=== PATIENT | male | born 1980 | race Caucasian/White ===

== ENCOUNTER → 2018-11-21 | Day surgery (SDC) | payer MEDICARE, OTHER ==
[~2018-11-21] VITALS: Ht 182.9 cm; Wt 189.4 kg
[2018-11-21] VITALS (8 sets, daily range): BP systolic 91–125; BP diastolic 50–69; PULSE 72–82; RESP 16–24
[~2018-11-21] MED LIST: ACETAMINOPHEN 325 MG TAB PO PRN; ALBUTEROL 0.083% (NEB) 2.5 MG/3 ML AMP HHN PRN; BUPIVACAINE 0.25% (MPF) 30 ML INJ ONE; BUPIVACAINE 0.5%/EPI (SDV) 30 ML INJ ONE; CARV25TA79 PO; CEFAZOLIN 1 GM INJ ONE; CEFAZOLIN 2 GM/50 ML (PMX) 50 ML IVPB ONE; CYCLOBENZAPRINE 10 MG TAB PO PRN; DIPHENHYDRAMINE 25 MG CAP PO PRN; DIPHENHYDRAMINE 50 MG INJ IV PRN; DULO60CA59 PO; EPHEDrine 25 MG/5 ML SYG ONE; EPINEPHrine 10 MCG/1ml (10 ML SYG) IV ONE; FENTAnyl 50 MCG/ML VIAL IV PRN; FENTAnyl 50 MCG/ML VIAL ONE; GABA-526 PO; GELATIN SIZE 100 SPONGE ONE; HYDROCODONE/APAP (5/325) TAB PO PRN; HYDROmorphONE 0.5 MG/0.5 ML SYG IV PRN; HYDROmorphONE 1 MG/5 ML IV SYRINGE IV PRN; IPRATROPIUM (NEB) 0.5 MG/2.5 ML AMP HHN PRN; LABETALOL HCL 20MG INJ IV PRN; LACT10SO5 PO; LUBI24CA7 PO; MEPERIDINE 25 MG INJ IV PRN; METH10TA2 PO; METOCLOPRAMIDE 10 MG INJ ONE; MIDAZOLAM 1 MG/ML 2 ML INJ ONE; MONT10TA24 PO; MORPHINE PUMP; NALO25TA PO; NALOXONE (0.4 MG/ML) INJ IV PRN; NORT50CA PO; OLME40TA13 PO; ONDANSETRON 4 MG INJ IV PRN; ONDANSETRON 4 MG INJ ONE; OXCA300T41 PO; OXCA600T30 PO; OXYCODONE/ACETAMINOPHEN (5/325) TAB PO PRN; PHENYLephrine (100 MCG/ML) 5ML SYG ONE; POLYMYXIN/BACITRACIN 1L IRRIG ONE; PROPOFOL 20 ML ONE; PROVENTIL HFA 6.7GM INHALER ONE; ROCURONIUM 50 MG INJ ONE; THROMBIN 5000 UNIT VIAL ONE; TOLT4CAP13 PO; VANCOMYCIN 1 GM INJ ONE; hydrALAzine 20 MG INJ IV PRN
--- NOTE | 2018-11-21 10:51 | PREAC ---
Date/Time of Note Date/Time of Note DATE: 11/21/18 TIME: 10:49 Anesthesia Eval and Record Evaluation Time Pre-Procedure Interview DATE: 11/21/18 TIME: 10:49 Age 38 Sex male NPO: 8 hrs Preoperative diagnosis spondylosis radiculopathy Planned procedure thorasci lamonectomy nerve stuimulator placement through thorasic Past Medical History Past Medical History: Includes Cardio: HTN Pulm: Sleep Apnea, Asthma Neuro: Other (paraplegic) GI: Morbid obesity Surgery & Anesthesia Issues No known issue Meds Anticoagulation: No Beta Jenni within 24 hr: Yes Reason Beta Jenni not given: Pt. not on B-Jenni Reported Medications [Morphine Pump] No Conflict Check IMFUMORP 25.0/ML BUPIVACINE7.5MG 11/21/18 Methadone Hcl* (Methadone*) 10 Mg Tab, 10 MG PO QHS, TAB 11/21/18 Methadone Hcl* (Methadone*) 10 Mg Tab, 10 MG PO AC DINNER, TAB 11/21/18 Methadone Hcl* (Methadone*) 10 Mg Tab, 20 MG PO QAM, TAB 11/21/18 Methadone Hcl* (Methadone*) 10 Mg Tab, 10 MG PO AC LUNCH, TAB 11/21/18 Tolterodine Tartrate* (Tolterodine Tartrate* ER) 4 Mg Cap.er.24h, 4 MG PO DAILY, #30 CAP 11/21/18 Montelukast Sodium* (Montelukast Sodium*) 10 Mg Tablet, 10 MG PO QHS, #30 TAB 11/21/18 Duloxetine Hcl* (Duloxetine Hcl*) 60 Mg Capsule.dr, 60 MG PO DAILY, #30 CAP 11/21/18 Lubiprostone* (Amitiza*) 24 Mcg Capsule, 24 MCG PO BID, #60 CAP 11/21/18 Olmesartan Medoxomil (Benicar) 40 Mg Tablet, 40 MG PO DAILY, #30 TAB 11/21/18 Lactulose* (Lactulose*) 10 Gm/15 Ml Solution, 10 GM PO QHS, ML 11/21/18 Gabapentin* (Gabapentin*) 600 Mg Tablet, 1200 MG PO QID, #180 TAB 11/21/18 Naloxegol Oxalate (Movantik) 25 Mg Tablet, 25 MG PO DAILY, TAB 11/21/18 Oxcarbazepine* (Oxcarbazepine*) 300 Mg Tablet, 300 MG PO AC DINNER, TAB 11/21/18 Oxcarbazepine* (Oxcarbazepine*) 600 Mg Tablet, 600 MG PO QHS, TAB 11/21/18 Oxcarbazepine* (Oxcarbazepine*) 300 Mg Tablet, 300 MG PO AC LUNCH, TAB 11/21/18 Oxcarbazepine* (Oxcarbazepine*) 300 Mg Tablet, 300 MG PO QAM, TAB 11/21/18 Nortriptyline Hcl* (Nortriptyline Hcl*) 50 Mg Capsule, 50 MG PO QHS, TAB 11/21/18 Carvedilol* (Carvedilol*) 25 Mg Tablet, 25 MG PO BID, #60 TAB 11/21/18 Meds reviewed: Yes Allergies Coded Allergies: Penicillins (Verified Allergy, Unknown, 11/21/18) adhesive tape (Verified Allergy, Unknown, 11/20/18) amoxicillin (Verified Allergy, Unknown, 11/21/18) shellfish derived (Verified Allergy, Unknown, 11/20/18) Allergies Reviewed: Yes Labs/Studies Labs Reviewed: Reviewed by anesthesiologist Blood Bank Test 11/21/18 09:25 Antibody Screen NEGATIVE Blood Type A POSITIVE test: N/A Studies: ECG (sr), CXR (nl) Pre-procedure Exam Last vitals Vital Signs Date Temp Pulse Resp B/P (MAP) Pulse Ox O2 O2 Flow FiO2 Time Delivery Rate 11/21/18 97.5 82 16 123/69 99 Room Air 09:49 (87) Airway: Adequate mouth opening Mallampati: Mallampati III Teeth: Normal Lung: Normal Heart: Normal ASA Physical Status ASA physical status: 3 Emergency: None Planned Anesthetic General/MAC: ETT Planned Pain Management Parenteral pain med Pre-operative Attestations Prior to commencing anesthesia and surgery, the patient was re-evaluated, there was verification of: *The patient's identity *The results of appropriate recent lab work and preoperative vital signs *The above evaluation not changing prior to induction *Anesthetic plan, risk benefits, alternative and complications discussed with patient/family; questions answered; patient/family understands, accepts and wishes to proceed. CHRISTIAN HILL MD November 21, 2018 10:51
--- NOTE | 2018-11-21 10:57 | HPN ---
Date/Time of Note Date/Time of Note DATE: 11/21/18 TIME: 10:56 Interval H&P Admission Note Pt. seen H&P reviewed: No system changes RASHARD LYNN MD November 21, 2018 10:57
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
--- NOTE | 2018-11-22 09:16 | PAC ---
Date/Time of Note Date/Time of Note DATE: 11/22/18 TIME: 09:15 Post-Anesthesia Notes Post-Anesthesia Note Last documented vital signs Vital Signs Date Temp Pulse Resp B/P (MAP) Pulse Ox O2 O2 Flow FiO2 Time Delivery Rate 11/21/18 96.9 77 18 125/56 100 15:00 (79) 11/21/18 Mask 13:42 11/21/18 10.0 13:39 Activity: WNL Respiratory function: WNL Cardiovascular function: WNL Mental status: Baseline Pain reasonably controlled: Yes Hydration appropriate: Yes Nausea/Vomiting absent: No CHRISTIAN HILL MD November 22, 2018 09:16
== END | disposition home or self-care (01) ==
LOC: SDS 08:29
PROVIDERS: ATTEND Orthopaedic Surgery Orthopaedic Surgery of the Spine
DX: M48.04 Spinal stenosis, thoracic region (principal); G82.20 Paraplegia, unspecified; S24.103S Unspecified injury at T7-T10 level of thoracic spinal cord, sequela; W34.00XS Accidental discharge from unspecified firearms or gun, sequela
CPT/HCPCS: 63655; 72072; 86850; 86900; 86901; 86999; J0171; J0690; J1170; J2250; J2370; J2405; J2765; J3010; J3370